=== PATIENT | male | born 1950 | race Asian ===

== ENCOUNTER 2021-04-23 06:15 | Day surgery (SDC) | payer OTHER ==
[2021-04-20 16:03] VITALS: BMI 22.2
[2021-04-23] MEDS: TROPICAMIDE 1% OPHTH SOLN 15 ML BOTTLE ONE ×3 (07:00→07:10)
[2021-04-23] MEDS: PHENYLEPHRINE 2.5% OPHTH SOLN 15 ML BOTTLE ONE ×3 (07:00→07:10)
[2021-04-23] MEDS: CYCLOPENTOLATE 2% OPHTH SOLN 2 ML BOTTLE ONE ×3 (07:00→07:10)
[2021-04-23] MEDS: CIPROFLOXACIN 0.3% EYE DROPS 5 ML BOTTLE ONE ×3 (07:00→07:10)
[2021-04-23] MEDS ORDERED: EPINEPHrine/PF 1 MG/1 ML (1:1,000) AMPULE ONE (07:14)
[2021-04-23] MEDS ORDERED: LIDOCAINE 1% P/F 10 MG/ML VIAL ONE (07:14)
[2021-04-23] MEDS ORDERED: BSS (NA/CA/MG/K) BALANCED SALT SOLUTION OPHTH SOLN 15 ML BOTTLE ONE (07:15)
[2021-04-23] MEDS ORDERED: TETRACAINE 0.5% OPHTH SOLN 2 ML BOTTLE ONE (07:15)
[2021-04-23] MEDS ORDERED: CARBACHOL 0.01% INTRA-OCULAR 1.5 ML VIAL ONE (07:15)
[2021-04-23] MEDS ORDERED: NEO/POLYMYX B SULF/DEXAMETH OPHTHALMIC 5ML BOTTLE ONE (07:15)
[2021-04-23] MEDS ORDERED: MIDAZOLAM HCL 2 MG/2 ML SINGLE DOSE VIAL ONE (08:06)
[2021-04-23 08:40] VITALS: TEMP 97.6
[2021-04-23 09:02] VITALS: BP 116/71; PULSE 59
== END 2021-04-23 09:04 | disposition home or self-care (01) ==
LOC: FASU 06:15
PROVIDERS: ATTEND Ophthalmology
PROC: 08RK3JZ Replacement of Left Lens with Synthetic Substitute, Percutaneous Approach (ICD-10-PCS; principal; 2021-04-23 08:13)
DX: H26.8 Other specified cataract (principal)
CPT/HCPCS: 82962

== ENCOUNTER 2024-08-22 19:31 | Emergency (ER) | payer OTHER ==
[2024-08-22 19:38] VITALS: BP 117/54; PULSE 88; RESP 18; TEMP 97.5; BMI 23.5
[2024-08-22] MEDS ORDERED: IBUPROFEN 600 MG TABLET (FP) PO ONE (20:06)
[2024-08-22] MEDS: IBUPROFEN 600 MG TABLET (FP) PO ONE (20:12)
== END 2024-08-22 20:55 | disposition home or self-care (01) ==
LOC: FER 19:31
DX: S80.02XA Contusion of left knee, initial encounter (principal); W18.39XA Other fall on same level, initial encounter
CPT/HCPCS: 73560-TC-LT-FY; 99283-25